=== PATIENT | female | born 1965 | race Caucasian/White ===

== ENCOUNTER → 2017-04-10 | Outpatient (CLI) | payer MEDICARE ==
[~2017-04-10] MED LIST: CELEBREX 200MG200 MG PO; FENTANYL 225 MCG/EAC TD; HYDROCODONE BI473 ML PO; NEURONTIN 300M300 MG PO; ROBAXIN 500 MG500 MG PO; SYNTHROID0.112 M2 PO
[2017-04-10 14:05] LABS: HEMOGLOBIN 13.1 g/dL (12.2-16.2); LYMPH # 4.1 K/mm3 (0.7-4.5); LYMPH % 46.8 % (10-50.0)
[2017-04-10 15:05] LABS: GFR (ESTIMATED) 59 ML/MIN (59-)
[2017-04-10 15:07] LABS: BUN 9 mg/dL (7-18)
== END ==
LOC: CARL-LAB 09:06
PROVIDERS: Internal Medicine Adolescent Medicine
DX: E78.5 Hyperlipidemia, unspecified (principal); E03.9 Hypothyroidism, unspecified; M79.7 Fibromyalgia